=== PATIENT | male | born 1955 | race Caucasian/White ===

== ENCOUNTER → 2016-10-19 | Outpatient (CLI) | payer BC ==
[~2016-10-19] MED LIST: ATOR-24 PO; CYCL5TAB PO; GLC/500 PO; GLC5 PO; GLIP-197 PO; HYDR-5688 PO; LISI-725 PO
== END | disposition home or self-care (01) ==
LOC: C.LABSPEC 17:53
PROVIDERS: ATTEND Nurse Practitioner Adult Health
DX: D49.519 Neoplasm of unspecified behavior of unspecified kidney (principal); R35.0 Frequency of micturition

== ENCOUNTER 2016-10-24 05:17 | Emergency (ER) | payer BC ==
[~2016-10-24] VITALS: Ht 180.3 cm; Wt 108.0 kg
[~2016-10-24 05:17] MED LIST changes: -CYCL5TAB PO; -GLC/500 PO; -GLIP-197 PO; -HYDR-5688 PO
[2016-10-24 05:23] VITALS: TEMP 36.5; Ht 180.3 cm; Wt 108.0 kg
[2016-10-24] MEDS ORDERED: SODIUM CHLORIDE 0.9% 1000ML 1,000 ML IV STA (05:49)
[2016-10-24] MEDS ORDERED: CYCLOBENZAPRINE HCL 10 MG TAB PO STA (05:49)
[2016-10-24] MEDS ORDERED: HYDROmorphone INJ 1 MG/ML SYR IV STA (05:49)
[2016-10-24] MEDS ORDERED: ONDANSETRON INJ 2 MG/ML 2 ML VIAL IV STA (05:49)
--- NOTE | 2016-10-24 05:58 | EMERGENCY ROOM VISIT NOTE ---
History Report prepared by Trangibandressa: Kami Faria Under the Supervision of: Dr. Angeles Dahl M.D. First contact with patient: 05:44 Chief Complaint: BACK PAIN Stated Complaint: PAIN IN THE MIDDLE OF BACK History of Present Illness The patient is a 61 year old male who presents to the Emergency Room with complaints of worsening mid back pain that started about a month ago. He notes it has gotten progressively worse to the point that he cannot sleep at night for the past few days. He has some worsening of his pain and radiation up his back with breathing. It does not radiate down either of his legs. He denies any recent straining or lifting. The patient has a history of a benign renal mass that was removed. Denies fever, loss of control of his bowels or bladder, hematuria, or other complaints. The patient has followed up with Dr. Carvajal regularly since the renal mass was removed and is scheduled for an MRI of his spine on Wednesday. He does not have a history of cancer. Source of History: patient Onset: a month ago Position: back Timing: worsening Modifying Factors (Worsening): breathing Associated Symptoms: No fevers Review of Systems See HPI for pertinent positives & negatives. A total of 10 systems reviewed and were otherwise negative. Past Medical & Surgical Medical Problems: (1) HTN (hypertension) (2) Transient ischemic attack (3) Type 2 diabetes mellitus Family History Diabetes mellitus Social History Smoking Status: Current Every Day Smoker Alcohol Use: none Housing Status: lives alone Occupation Status: employed Current/Historical Medications Scheduled Atorvastatin (Lipitor), 40 MG PO QAM Glipizide (Glipizide Er), 5 MG PO DAILY Lisinopril (Zestril), 20 MG PO QAM Metformin Hcl (Glucophage), 500 MG PO BID Scheduled PRN Cyclobenzaprine Hcl (Flexeril), 5 MG PO TID PRN for Muscle Spasms Hydrocodone/Acetaminophen 5MG/325MG (Alvin 5MG/325MG), 1-2 TABLET PO Q6 PRN for Pain Allergies Coded Allergies: No Known Allergies (Unverified , 10/24/16) Physical Exam Vital Signs Date Time Temp Pulse Resp B/P Pulse Ox O2 Delivery O2 Flow Rate FiO2 10/24/16 07:36 75 18 164/75 97 Room Air 10/24/16 06:45 73 18 148/73 97 Room Air 10/24/16 05:23 36.5 88 20 158/79 97 Room Air Physical Exam Vital signs reviewed. General: Well-appearing 61 year old male, in no significant distress. HEENT: No scleral icterus, PERRLA, neck supple. Atraumatic. Cardiovascular: Regular rate and rhythm, no extra sounds. Pulmonary: Clear to auscultation bilaterally, normal work of breathing. Abdomen: Soft, nontender, nondistended, positive bowel sounds. Musculoskeletal: Atraumatic, no peripheral edema. Tender along the distal thoracic spine with paraspinal muscle spasm. Neurologic: Patient awake alert and oriented x 3, full strength in all 4 extremities. Cranial nerves 2 through 12 grossly intact. Skin: Warm, dry, no rash Medical Decision & Procedures ER Provider Diagnostic Interpretation: Results as stated below per my review and radiologist interpretation: THORACIC SPINE 3 VIEWS ROUTINE CLINICAL HISTORY: Thoracic spine pain. No known trauma. COMPARISON STUDY: Chest radiograph January 22, 2016. FINDINGS: Alignment of the thoracic spine is anatomic. No evidence acute fracture is identified by radiography. There is moderate anterior osteophytosis with multilevel disc space narrowing. Note is made of mild concavity of the superior endplate of a vertebral body at the thoracolumbar junction, likely T12. IMPRESSION: 1. Mild loss of height of the superior endplate of a vertebral body at the thoracolumbar junction, likely T12. This represents an age indeterminate compression deformity although is probably old. 2. Moderate anterior osteophytosis and mild multilevel disc space narrowing of the thoracic spine. Electronically signed by: Jong Bradford M.D. 10/24/2016 7:07 AM Dictated Date/Time: 10/24/2016 7:02 AM FLUOROSCOPIC IMAGES OF THE LUMBAR SPINE CLINICAL HISTORY: Lumbar back pain. No known trauma. COMPARISON: CT of the abdomen and pelvis July 09, 2014. FLUOROSCOPY TIME: FINDINGS: Alignment of the lumbar spine is anatomic. Vertebral body heights are maintained. There is no acute fracture. There is minimal disc space narrowing and moderate osteophytosis of the lumbar spine. Sacroiliac joints are intact. IMPRESSION: 1. No acute lumbar spine fracture or subluxation. 2. Mild multilevel degenerative disc disease of the lumbar spine. Electronically signed by: Jong Bradford M.D. 10/24/2016 7:08 AM Dictated Date/Time: 10/24/2016 7:07 AM Laboratory Results 10/24/16 06:10 Red Blood Count 4.74, Mean Corpuscular Volume 83.8, Mean Corpuscular Hemoglobin 29.7, Mean Corpuscular Hemoglobin Concent 35.5, Mean Platelet Volume 11.1, Neutrophils (%) (Auto) 58.9, Lymphocytes (%) (Auto) 25.3, Monocytes (%) (Auto) 11.0, Eosinophils (%) (Auto) 4.5, Basophils (%) (Auto) 0.2, Neutrophils # (Auto ) 5.20, Lymphocytes # (Auto) 2.24, Monocytes # (Auto) 0.97, Eosinophils # (Auto ) 0.40, Basophils # (Auto) 0.02 10/24/16 06:10 Test 10/24/16 06:10 White Blood Count 8.84 K/uL (4.8-10.8) Red Blood Count 4.74 M/uL (4.7-6.1) Hemoglobin 14.1 g/dL (14.0-18.0) Hematocrit 39.7 % (42-52) Mean Corpuscular Volume 83.8 fL (80-100) Mean Corpuscular Hemoglobin 29.7 pg (25-34) Mean Corpuscular Hemoglobin Concent 35.5 g/dl (32-36) Platelet Count 179 K/uL (130-400) Mean Platelet Volume 11.1 fL (7.4-10.4) Neutrophils (%) (Auto) 58.9 % Lymphocytes (%) (Auto) 25.3 % Monocytes (%) (Auto) 11.0 % Eosinophils (%) (Auto) 4.5 % Basophils (%) (Auto) 0.2 % Neutrophils # (Auto) 5.20 K/uL (1.4-6.5) Lymphocytes # (Auto) 2.24 K/uL (1.2-3.4) Monocytes # (Auto) 0.97 K/uL (0.11-0.59) Eosinophils # (Auto) 0.40 K/uL (0-0.5) Basophils # (Auto) 0.02 K/uL (0-0.2) RDW Standard Deviation 38.6 fL (36.4-46.3) RDW Coefficient of Variation 12.7 % (11.5-14.5) Immature Granulocyte % (Auto) 0.1 % Immature Granulocyte # (Auto) 0.01 K/uL (0.00-0.02) Anion Gap 7.0 mmol/L (3-11) Est Creatinine Clear Calc Drug Dose 87.0 ml/min Estimated GFR () 82.9 Estimated GFR (Non- 71.6 BUN/Creatinine Ratio 14.6 (10-20) Calcium Level 8.5 mg/dl (8.5-10.1) Total Bilirubin 0.4 mg/dl (0.2-1) Direct Bilirubin < 0.1 mg/dl (0-0.2) Aspartate Amino Transf (AST/SGOT) 19 U/L (15-37) Alanine Aminotransferase (ALT/SGPT) 29 U/L (12-78) Alkaline Phosphatase 74 U/L (45-117) Total Protein 6.9 gm/dl (6.4-8.2) Albumin 4.0 gm/dl (3.4-5.0) Laboratory results per my review. Medications Administered Medications (Trade) Dose Ordered Sig/Hcun Route Start Time Stop Time Status Last Admin Dose Admin Hydromorphone HCl (Dilaudid Inj) 1 mg NOW STAT IV 10/24/16 05:49 10/24/16 05:52 DC 10/24/16 05:59 1 MG Ondansetron HCl 4 mg 4 mg NOW STAT IV 10/24/16 05:49 10/24/16 05:52 DC 10/24/16 06:00 4 MG Sodium Chloride (Nss 1000ml) 1,000 ml @ 125 mls/hr Q8H STAT IV 10/24/16 05:49 10/24/16 08:42 DC 10/24/16 05:49 125 MLS/HR Cyclobenzaprine HCl (Flexeril Tab) 5 mg NOW STAT PO 10/24/16 05:49 10/24/16 05:52 DC 10/24/16 05:59 5 MG ED Course 0548: The patient was evaluated in room B6. A complete history and physical examination was performed. Ordered Flexeril Tab 5 mg PO, NSS 1000 ml @ 125 mls/ hr IV, Zofran Inj 4 mg IV, Dilaudid Inj 1 mg IV. 0750: Upon reevaluation, the patient appeared to have improvement of his symptoms. I discussed findings with the patient. He verbalized agreement of the treatment plan. The patient was discharged home. Medical Decision Differential diagnosis: Etiologies such as musculoskeletal, disc herniation, fracture, aortic disease, metastatic disease, cord compression, discitis, infection, renal colic, gastrointestinal, acute exacerbation of chronic back pain, sciatica, cauda equina, as well as others were entertained. This patient was evaluated and appeared to be in significant discomfort. IV access was obtained and laboratory work was drawn. The patient was medicated with 1 mg of IV Dilaudid, 5 mg of Flexeril orally and 4 mg of IV Zofran. Patient was gently hydrated with normal saline solution. X-rays of the thoracic and lumbar spine were performed and reveal a T12 compression fracture that is likely old. I suspect the patient has reaggravated this injury and has paraspinous muscle spasm. He was feeling much improved on my reevaluation. The patient will be discharged on a when necessary Flexeril and hydrocodone. He will follow-up with his physician for reevaluation and consider spine referral if pain continues. He will return to the ER for worsening of symptoms or any medical concerns. Impression Primary Impression: T12 compression fracture Scribe Attestation The scribe's documentation has been prepared under my direction and personally reviewed by me in its entirety. I confirm that the note above accurately reflects all work, treatment, procedures, and medical decision making performed by me. Departure Information Dispostion Home / Self-Care Prescriptions Hydrocodone/Acetaminophen 5MG/325MG (Alvin 5MG/325MG) Tab 1-2 TABLET PO Q6 Y for Pain, #20 TAB Prov: Angeles Dahl M.D. 10/24/16 Cyclobenzaprine Hcl (FLEXERIL) 5 Mg Tab 5 MG PO TID Y for Muscle Spasms, #30 TAB Prov: Angeles Dahl M.D. 10/24/16 Referrals Andre Betancourt M.D. (PCP) Patient Instructions My [facility] Additional Instructions Diagnosis: T12 compression fracture Flexeril 5 mg 3 times daily as needed for muscular spasm. Alvin one to 2 tabs every 6 hours as needed for severe pain. Do not drive or take Tylenol with this medication. Ibuprofen 600 mg every 6 hours as needed for pain with food. Drink plenty of clear fluids. Follow-up with Dr. Carvajal of urology as scheduled. Follow-up with your primary care physician this week for reevaluation of the compression fracture. Return to the emergency department for worsening of symptoms or any medical concerns. Problem Qualifiers Primary Impression: T12 compression fracture Encounter type: initial encounter Qualified Codes: M48.54XA - Collapsed vertebra, not elsewhere classified, thoracic region, initial encounter for fracture
[2016-10-24] MEDS ORDERED: GLIP-197 PO (06:01)
[2016-10-24] MEDS ORDERED: GLC/500 PO (06:02)
[2016-10-24 06:29] LABS: BASO % 0.2 %; BASO ABS # 0.02 K/uL (0-0.2); COMPLETE YES; EOS % 4.5 %; HEMATOCRIT 39.7 % (42-52); IG% 0.1 %; LYMPH % 25.3 %; LYMPH ABS # 2.24 K/uL (1.2-3.4); MEAN CELL VOLUME 83.8 fL (80-100); MEAN CORPUSCULAR HEMOGLOBIN 29.7 pg (25-34); MEAN CORPUSCULAR HGB CONC 35.5 g/dl (32-36); MEAN PLATELET VOLUME 11.1 fL (7.4-10.4); NEUT % 58.9 %; PLATELET COUNT 179 K/uL (130-400); RED BLOOD COUNT 4.74 M/uL (4.7-6.1); WHITE BLOOD COUNT 8.84 K/uL (4.8-10.8)
[2016-10-24 06:44] LABS: ALT/SGPT 29 U/L (12-78); AST/SGOT 19 U/L (15-37); BLOOD UREA NITROGEN 16 mg/dl (7-18); BUN/CREATININE RATIO 14.6 (10-20); CALCIUM 8.5 mg/dl (8.5-10.1); CARBON DIOXIDE 26 mmol/L (21-32); CHLORIDE 107 mmol/L (98-107); GLUCOSE 224 mg/dl (70-99); SODIUM 140 mmol/L (136-145)
[2016-10-24 06:47] LABS: ALKALINE PHOSPHATASE 74 U/L (45-117)
--- NOTE | 2016-10-24 07:08 | DIAGNOSTIC IMAGING REPORT ---
THORACIC SPINE 3 VIEWS ROUTINE CLINICAL HISTORY: Thoracic spine pain. No known trauma. COMPARISON STUDY: Chest radiograph January 22, 2016. FINDINGS: Alignment of the thoracic spine is anatomic. No evidence acute fracture is identified by radiography. There is moderate anterior osteophytosis with multilevel disc space narrowing. Note is made of mild concavity of the superior endplate of a vertebral body at the thoracolumbar junction, likely T12. IMPRESSION: 1. Mild loss of height of the superior endplate of a vertebral body at the thoracolumbar junction, likely T12. This represents an age indeterminate compression deformity although is probably old. 2. Moderate anterior osteophytosis and mild multilevel disc space narrowing of the thoracic spine. Electronically signed by: Jnog Bradford M.D. 10/24/2016 7:07 AM Dictated Date/Time: 10/24/2016 7:02 AM
--- NOTE | 2016-10-24 07:09 | DIAGNOSTIC IMAGING REPORT ---
FLUOROSCOPIC IMAGES OF THE LUMBAR SPINE CLINICAL HISTORY: Lumbar back pain. No known trauma. COMPARISON: CT of the abdomen and pelvis July 09, 2014. FLUOROSCOPY TIME: FINDINGS: Alignment of the lumbar spine is anatomic. Vertebral body heights are maintained. There is no acute fracture. There is minimal disc space narrowing and moderate osteophytosis of the lumbar spine. Sacroiliac joints are intact. IMPRESSION: 1. No acute lumbar spine fracture or subluxation. 2. Mild multilevel degenerative disc disease of the lumbar spine. Electronically signed by: Jong Bradford M.D. 10/24/2016 7:08 AM Dictated Date/Time: 10/24/2016 7:07 AM
[2016-10-24 07:36] VITALS: BP 164/75; PULSE 75; O2SAT 97
[2016-10-24] MEDS ORDERED: HYDR-5688 PO (07:49)
[2016-10-24] MEDS ORDERED: CYCL5TAB PO (07:49)
== END 2016-10-24 08:00 | disposition home or self-care (01) ==
LOC: C.EDB 05:18
DX: M48.54XA Collapsed vertebra, not elsewhere classified, thoracic region, initial encounter for fracture (principal); I10 Essential (primary) hypertension; E11.9 Type 2 diabetes mellitus without complications; Z86.018 Personal history of other benign neoplasm; Z86.73 Personal history of transient ischemic attack (TIA), and cerebral infarction without residual deficits; Z79.899 Other long term (current) drug therapy; Z83.3 Family history of diabetes mellitus

== ENCOUNTER → 2016-10-26 | Outpatient (CLI) | payer BC ==
[~2016-10-26] MED LIST changes: +CYCL5TAB PO; +GLC/500 PO; -GLC5 PO; +GLIP-197 PO; +HYDR-5688 PO; +OPTIRAY 320 IV PRN
[2016-10-26 12:21] LABS: BLOOD UREA NITROGEN 14 mg/dl (7-18); BUN/CREATININE RATIO 13.5 (10-20)
--- NOTE | 2016-10-26 13:09 | DIAGNOSTIC IMAGING REPORT ---
CT ABD/PELVIS COMBO CLINICAL HISTORY: Renal neoplasm. COMPARISON STUDY: 07/09/2014 TECHNIQUE: Unenhanced images were obtained through the upper abdomen. The patient was then scanned in a dynamic helical fashion during intravenous administration of [address] DOSE: 1680.84 mGycm FINDINGS: Lower chest: The heart is normal in size and configuration, without pericardial effusion. The lung bases and pleural spaces are clear. Liver: The contrast-enhanced liver is normal in size, contour, and attenuation. There is no intrahepatic biliary ductal dilatation. The hepatic veins and portal veins are patent. Gallbladder: Unremarkable. Spleen: Normal in size and attenuation. Pancreas: Unremarkable. Adrenal glands: Unremarkable. Kidneys: There is a 17 mm lesion involving the lateral aspect of the right kidney. There are adjacent cortical calcifications. This lesion does not enhance and appears slightly smaller than the prior 2013 study. The findings are consistent with the history of a prior renal cell carcinoma which is undergone cryoablation. No new or enlarging renal masses are visualized. Bowel: There is a duodenal diverticulum present. There are no transition zones indicate bowel obstruction. There is colonic diverticulosis. There is no acute peridiverticular inflammatory change. There is borderline wall thickening involving the descending and sigmoid colon. The appendix appears normal. Peritoneum: There is no intraperitoneal free air or abdominal ascites. Vasculature: The abdominal aorta is normal in course and caliber. Adenopathy: None. Pelvic viscera: The bladder, and pelvic viscera are unremarkable. Skeletal structures: No destructive osseous lesions are seen. IMPRESSION: 1. Right renal cortical scarring. No CT evidence of recurrent renal cell carcinoma. 2. No CT evidence of metastatic disease Electronically signed by: Harman Rodriguez M.D. 10/26/2016 1:08 PM Dictated Date/Time: 10/26/2016 1:01 PM
== END | disposition home or self-care (01) ==
LOC: C.CTS 11:24
PROVIDERS: ATTEND Nurse Practitioner Adult Health
DX: D49.519 Neoplasm of unspecified behavior of unspecified kidney (principal)

== ENCOUNTER → 2016-11-16 | Outpatient (CLI) | payer BC ==
[~2016-11-16] MED LIST changes: -CYCL5TAB PO; -OPTIRAY 320 IV PRN
== END | disposition home or self-care (01) ==
LOC: C.MAMM 09:01
PROVIDERS: ATTEND Family Medicine
DX: M48.54XA Collapsed vertebra, not elsewhere classified, thoracic region, initial encounter for fracture (principal)

== ENCOUNTER → 2017-10-09 | Outpatient (CLI) | payer OTHER ==
[~2017-10-09] MED LIST changes: -HYDR-5688 PO
--- NOTE | 2017-10-09 10:26 | DIAGNOSTIC IMAGING REPORT ---
CHEST 2 VIEWS ROUTINE CLINICAL HISTORY: Cough. COMPARISON STUDY: Chest radiograph January 22, 2016. FINDINGS: Lung volumes are normal. There is no consolidation or evidence of pulmonary edema. Cardiac size is normal. Mediastinal contours are normal. The appearance of the chest is unchanged. IMPRESSION: No acute cardiopulmonary findings. Electronically signed by: Jong Bradford M.D. 10/09/2017 10:24 AM Dictated Date/Time: 10/09/2017 10:24 AM
== END | disposition home or self-care (01) ==
LOC: C.RAD 09:30
PROVIDERS: ATTEND Nurse Practitioner
DX: R05 Cough (principal)

== ENCOUNTER → 2017-11-17 | Outpatient (CLI) | payer OTHER ==
--- NOTE | 2017-11-17 13:05 | DIAGNOSTIC IMAGING REPORT ---
CHEST 2 VIEWS ROUTINE CLINICAL HISTORY: M54.9, R68.83, R41.0, R11.0, R05, E11.9 dyspnea. Cough. COMPARISON STUDY: 10/09/2017 FINDINGS: The bones soft tissues and hemidiaphragms are normal. The cardiomediastinal silhouette is normal. The lungs are clear. The pulmonary vasculature is normal. IMPRESSION: Negative chest. The above report was generated using voice recognition software. It may contain grammatical, syntax or spelling errors. Electronically signed by: Bryan Edwards M.D. 11/17/2017 1:04 PM Dictated Date/Time: 11/17/2017 1:03 PM
== END | disposition home or self-care (01) ==
LOC: C.RAD1850 12:40
PROVIDERS: ATTEND Nurse Practitioner Family
DX: R05 Cough (principal); R06.00 Dyspnea, unspecified; M54.9 Dorsalgia, unspecified; R68.83 Chills (without fever); R11.0 Nausea; E11.9 Type 2 diabetes mellitus without complications

== ENCOUNTER → 2017-11-29 | Outpatient (CLI) | payer OTHER ==
--- NOTE | 2017-11-29 11:06 | DIAGNOSTIC IMAGING REPORT ---
CHEST 2 VIEWS ROUTINE CLINICAL HISTORY: Cough. Benign prostatic hypertrophy. Preprocedure evaluation COMPARISON STUDY: Chest radiograph November 17, 2017. FINDINGS: Lung volumes are normal. No consolidation is identified. No pneumothorax or pleural effusion is noted. There is no evidence for pulmonary edema. Cardiomediastinal silhouette is stable. IMPRESSION: No acute cardiopulmonary findings. Electronically signed by: Jong Bradford M.D. 11/29/2017 11:05 AM Dictated Date/Time: 11/29/2017 11:04 AM
== END | disposition home or self-care (01) ==
LOC: C.RAD 10:17
PROVIDERS: ATTEND Urology
DX: N39.0 Urinary tract infection, site not specified (principal)

== ENCOUNTER → 2017-12-07 | Outpatient (CLI) | payer OTHER | END | disposition home or self-care (01) | LOC: C.LAB 07:36 | PROVIDERS: ATTEND Urology | DX: Z00.00 Encounter for general adult medical examination without abnormal findings (principal); N40.1 Benign prostatic hyperplasia with lower urinary tract symptoms; R35.0 Frequency of micturition; R33.9 Retention of urine, unspecified ==

== ENCOUNTER → 2017-12-14 | Outpatient (CLI) | payer OTHER ==
--- NOTE | 2017-12-14 12:19 | DIAGNOSTIC IMAGING REPORT ---
THORACIC SPINE 3 VIEWS ROUTINE CLINICAL HISTORY: 62 years-old Male presenting with M54.9 back pain. TECHNIQUE: 3 views of the thoracic spine were obtained. COMPARISON: 10/24/2016. FINDINGS: Redemonstration of superior endplate concavity at the vertebral body at the level of the thoracolumbar junction. Thoracic kyphosis is unchanged. Apart from the stable abnormality at the thoracolumbar junction, the remainder of the vertebral bodies maintain normal height and alignment. Visualized portion of the cervical spine grossly normal. Intervertebral disc heights preserved though disc osteophyte complexes noted to varying degrees at nearly every level in the cervical and thoracic spine. Mild dextrocurvature of the thoracic spine. No focal compression deformity or subluxation is evident. IMPRESSION: 1. Stable appearance of the superior endplate concavity in a vertebral body at the thoracolumbar junction. 2. Multilevel degenerative changes. 3. No change since the prior exam. Electronically signed by: Fidel Mahan M.D. 12/14/2017 12:18 PM Dictated Date/Time: 12/14/2017 12:16 PM
--- NOTE | 2017-12-14 12:22 | DIAGNOSTIC IMAGING REPORT ---
L-SPINE MIN 4 VIEWS ROUTINE CLINICAL HISTORY: 62 years-old Male presenting with M54.9 back pain. TECHNIQUE: Frontal, bilateral oblique, lateral, and coned in lateral views of the lumbar spine were obtained. COMPARISON: 10/24/2016. FINDINGS: No scoliosis. Normal lumbar lordosis. Vertebral bodies maintain normal height and alignment. Significant anterior osteophytosis noted at every level. Intervertebral disc heights preserved. No radiographic evidence of osseous neural foraminal narrowing. No compression deformity or subluxation. Calcifications project over the right kidney, unchanged, suggesting right renal calculi. IMPRESSION: 1. No radiographic evidence of acute osseous injury. 2. Multilevel degenerative changes. 3. Possible right renal calculus. Electronically signed by: Fidel Mahan M.D. 12/14/2017 12:20 PM Dictated Date/Time: 12/14/2017 12:18 PM
== END | disposition home or self-care (01) ==
LOC: C.RAD1850 11:52
PROVIDERS: ATTEND Nurse Practitioner Family
DX: M54.9 Dorsalgia, unspecified (principal)

== ENCOUNTER 2023-12-24 13:21 | Inpatient (IN) ==
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
[2023-12-24] MEDS: MoRPHine SULFATE 4 MG/ML 1 ML CARP\\VIAL IV STA (15:27)
[2023-12-24] MEDS: ONDANSETRON INJ 2 MG/ML 2 ML VIAL IV STA (15:27)
--- NOTE | 2023-12-24 15:31 | Emergency Department Note ---
ED Visit Note I was consulted by the Advanced Practice Provider, Stephen Gupta PA-C. I personally made/approved the management plan and take responsibility for the patient management. I performed a substantive portion of the visit. This includes the aspects of: -History/Physical/Personally seeing the patient -MDM .
[2023-12-24 15:43] LABS: Basophils # (auto) 0.04 K/uL (0.00-0.20); Basophils % (auto) 0.3 %; Eosinophils # (auto) 0.22 K/uL (0.00-0.50); Eosinophils % (auto) 1.9 %; Hematocrit (blood only) 36.3 % (42.0-52.0); Hemoglobin 12.5 g/dl (14.0-18.0); Immature Granulocytes # (auto) 0.04 K/uL (0.01-0.20); Immature Granulocytes % (auto) 0.3 %; Lymphocytes # (auto) 2.26 K/uL (1.20-3.40); Lymphocytes % (auto) 19.2 %; Mean Corpuscular Hemoglobin 29.3 pg (25.0-34.0); Mean Corpuscular Hgb Conc 34.4 g/dL (32.0-36.0); Mean Corpuscular Volume 85.2 fL (80.0-100.0); Mean Platelet Volume 10.4 fL (9.4-12.4); Monocytes # (auto) 0.76 K/uL (0.11-0.59); Monocytes % (auto) 6.5 %; Neutrophils # (auto) 8.44 K/uL (1.40-6.50); Neutrophils % (auto) 71.8 %; Platelet Count 181 K/uL (130-400); RDW Standard Deviation 40.2 fL (36.4-46.3); Red Blood Count 4.26 M/uL (4.70-6.10); White Blood Count 11.76 K/ul (4.8-10.8)
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
[2023-12-24 16:01] LABS: Albumin Globulin Ratio 1.5 (0.9-2); Albumin Level 4.2 gm/dl (3.4-5.0); BUN Creatinine Ratio 25.4 (10-20); Bilirubin,Total 0.4 mg/dl (0.2-1.0); Calcium 9.3 mg/dl (8.6-10.3); Creatinine Clr Calc Pharmacy 68.9 ml/min; Est GFR (African American) 69.7 ml/min; Est GFR (Non-African American) 60.1 ml/min; Globulin 2.8 gm/dl (2.5-4.0); Potassium 4.4 mmol/L (3.5-5.1)
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
[2023-12-24 16:07] LABS: Troponin I High Sensitivity 16.1 pg/ml (0-20)
[2023-12-24] MEDS: OPTIRAY 320 100ml IV ONE (16:46)
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
[2023-12-24] MEDS: SODIUM CHLORIDE 0.9% 500 ML IV ONE (18:08)
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
[2023-12-24] MEDS: dexAMETHasone**PF** 10 MG/ML VIAL IV ONE (18:40)
[2023-12-24] MEDS ORDERED: BACLOFEN 10 MG TAB PO PRN (19:07)
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
[2023-12-24] MEDS ORDERED: GLUCAGON FOR INJ 1 MG VIAL SQ PRN (19:09)
[2023-12-24] MEDS ORDERED: GLUCOSE 10 TAB/TUBE PO PRN (19:09)
[2023-12-24] MEDS ORDERED: CARBOHYDRATES FOR HYPOGLYCEMIA PO PRN (19:09)
[2023-12-24] MEDS ORDERED: GLUCOSE 40% GEL 15 GM TUBE PO PRN (19:09)
[2023-12-24] MEDS ORDERED: DEXTROSE 50% 50 ML SYRINGE IV PRN (19:09)
[2023-12-24] MEDS ORDERED: PHARMACY GLYCEMIC MGMT CONSULT PRN (21:00)
[2023-12-24] MEDS ORDERED: oxyCODONE HCL IR 5 MG TAB (IMMEDIATE RELEASE) PO PRN (21:00)
[2023-12-24] MEDS: INSULIN ASPART PER UNIT CHARGE SC SCH (21:03)
[2023-12-24] MEDS: ACETAMINOPHEN 500 MG TAB PO SCH (21:07)
[2023-12-24] MEDS: LANTUS PER UNIT CHARGE SC SCH (21:07)
[2023-12-24] MEDS ORDERED: HYDROmorphone INJ 0.5 MG/0.5 ML SYR IV PRN (21:14)
[2023-12-24] MEDS: LACTATED RINGER'S 1,000 ML IV SCH (22:18)
[2023-12-24] MEDS: dexAMETHasone 6 MG in SYRINGE 0 ML IV SCH (23:16)
[2023-12-25] MEDS ORDERED: DEXAMETHASONE SOD INJ 4 MG/ML VIAL IV SCH
[2023-12-25] MEDS: oxyCODONE HCL IR 5 MG TAB (IMMEDIATE RELEASE) PO PRN (03:10)
--- NOTE | 2023-12-25 06:08 | Electrocardiogram Report ---
Test Reason : Blood Pressure : / mmHG Vent. Rate : 074 BPM Atrial Rate : 074 BPM P-R Int : 186 ms QRS Dur : 092 ms QT Int : 396 ms P-R-T Axes : 056 040 056 degrees QTc Int : 439 ms Normal sinus rhythm Low voltage QRS Borderline ECG When compared with ECG of 03-MAY-2020 11:31, No significant change was found Confirmed by Matteo Ness ([id number]) on 12/25/2023 6:08:07 AM Referred By: REFERRED SELF Confirmed By:Jordi Ness
[2023-12-25] MEDS: HYDROmorphone INJ 0.5 MG/0.5 ML SYR IV PRN (06:11)
[2023-12-25 06:21] LABS: Calcium 9.5 mg/dl (8.6-10.3); Creatinine Clr Calc Pharmacy 72.7 ml/min; Est GFR (African American) 77.3 ml/min; Est GFR (Non-African American) 66.7 ml/min; Potassium 4.1 mmol/L (3.5-5.1)
[2023-12-25 06:30] LABS: Basophils # (auto) 0.01 K/uL (0.00-0.20); Basophils % (auto) 0.1 %; Hematocrit (blood only) 38.3 % (42.0-52.0); Hemoglobin 13.1 g/dl (14.0-18.0); Immature Granulocytes # (auto) 0.05 K/uL (0.01-0.20); Immature Granulocytes % (auto) 0.5 %; Lymphocytes # (auto) 2.07 K/uL (1.20-3.40); Mean Corpuscular Hemoglobin 29.5 pg (25.0-34.0); Mean Corpuscular Hgb Conc 34.2 g/dL (32.0-36.0); Mean Corpuscular Volume 86.3 fL (80.0-100.0); Mean Platelet Volume 10.7 fL (9.4-12.4); Monocytes # (auto) 0.11 K/uL (0.11-0.59); Monocytes % (auto) 1.1 %; Neutrophils # (auto) 7.63 K/uL (1.40-6.50); Neutrophils % (auto) 77.3 %; Platelet Count 189 K/uL (130-400); RDW Coefficient of Variation 12.7 % (11.5-14.5); RDW Standard Deviation 39.9 fL (36.4-46.3); Red Blood Count 4.44 M/uL (4.70-6.10); White Blood Count 9.87 K/ul (4.8-10.8)
[2023-12-25 07:46] LABS: Estimated Average Glucose 151 mg/dl; Hemoglobin A1C 6.9 % (4.5-5.6)
[2023-12-25] MEDS ORDERED: glipiZIDE 5 MG TAB PO SCH (09:00)
[2023-12-25] MEDS: ATORVASTATIN 40 MG TAB PO SCH (09:10)
[2023-12-25] MEDS: lisinopril 20 MG TAB PO SCH (09:10)
[2023-12-25] MEDS: CLOPIDOGREL BISULFATE 75 MG TAB PO SCH (09:10)
[2023-12-25] MEDS: INSULIN ASPART PER UNIT CHARGE SC SCH (09:20)
[2023-12-25] MEDS: LANTUS PER UNIT CHARGE SC SCH (09:20)
[2023-12-25] MEDS: KETOROLAC TROMETHAMINE 15 MG/ML VIAL IV PRN (09:20)
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
[2023-12-26 06:34] LABS: Hematocrit (blood only) 35.5 % (42.0-52.0); Hemoglobin 12.3 g/dl (14.0-18.0); Mean Corpuscular Hemoglobin 29.6 pg (25.0-34.0); Mean Corpuscular Hgb Conc 34.6 g/dL (32.0-36.0); Mean Corpuscular Volume 85.5 fL (80.0-100.0); Mean Platelet Volume 10.7 fL (9.4-12.4); Platelet Count 180 K/uL (130-400); RDW Coefficient of Variation 13.1 % (11.5-14.5); RDW Standard Deviation 41.1 fL (36.4-46.3); Red Blood Count 4.15 M/uL (4.70-6.10); White Blood Count 20.13 K/ul (4.8-10.8)
[2023-12-26 06:38] LABS: BUN Creatinine Ratio 33.3 (10-20); Calcium 9.4 mg/dl (8.6-10.3); Creatinine Clr Calc Pharmacy 64.6 ml/min; Est GFR (Non-African American) 57.8 ml/min; Potassium 4.4 mmol/L (3.5-5.1)
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
== END 2023-12-26 13:51 | disposition home or self-care (01) | DRG 53 ==
LOC: ED 13:21 → 3N 18:55 → SUATTDRO 18:55 → 3N 21:31